=== PATIENT | male | born 1980 | race American Indian/Alaskan Native ===

== ENCOUNTER 2018-10-16 15:15 | Emergency (ER) | payer SELFPAY ==
[2018-10-16] MEDS ORDERED: NACL 0.9% 500 ML 500 ML IV ONE (16:33)
[2018-10-16] MEDS ORDERED: NACL 0.9% 1000 ML 1,000 ML IV ONE (16:35)
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
[2018-10-16] MEDS ORDERED: MERREM 1,000 MG in NACL 0.9% 100 ML IV ONE (16:41)
[2018-10-16 16:58] LABS: Basophils # (Auto) 0.1 K/mm3 (0.0-0.1); Basophils % (Auto) 1.1 % (0.0-1.8); Eosinophils # (Auto) 0.6 K/mm3 (0.0-0.4); Eosinophils % (Auto) 9.4 % (0.0-4.3); Hematocrit 35.7 % (35.5-45.6); Hemoglobin 11.7 gm/dl (11.8-15.2); Lymphocytes # (Auto) 2.3 K/mm3 (1.2-5.4); Lymphocytes % (Auto) 35.5 % (13.4-35.0); Mean Corpuscular HGB Conc 33 % (32-34); Mean Corpuscular Volume 79 fl (84-94); Monocytes # (Auto) 0.5 K/mm3 (0.0-0.8); Monocytes % (Auto) 8.3 % (0.0-7.3); Platelet Count 295 K/mm3 (140-440); Red Blood Count 4.49 M/mm3 (3.65-5.03); Red Cell Distribution Width 17.5 % (13.2-15.2)
[2018-10-16 17:14] LABS: INR 1.02 (0.87-1.13)
[2018-10-16 17:16] LABS: BUN/Creatinine Ratio 23; Blood Urea Nitrogen 14 mg/dL (9-20); Calcium 9.5 mg/dL (8.4-10.2); Hemolysis Index 3
--- NOTE | 2018-10-16 17:18 | XRay Report ---
CHEST 1 VIEW INDICATION / CLINICAL INFORMATION: possible Sepsis. COMPARISON: None available. FINDINGS: SUPPORT DEVICES: None. HEART / MEDIASTINUM: No significant abnormality. LUNGS / PLEURA: No significant pulmonary or pleural abnormality. No pneumothorax. ADDITIONAL FINDINGS: No significant additional findings. IMPRESSION: 1. No acute findings. Signer Name: Darian Brannon MD Signed: 10/16/2018 5:14 PM Workstation Name: [id number]
[2018-10-16 17:34] LABS: Alanine Aminotransferase 21 units/L (7-56); Albumin 3.6 g/dL (3.9-5); Creatine Kinase MB 4.7 ng/mL (0.0-4.0)
[2018-10-16 17:36] LABS: Bilirubin,Direct < 0.2 mg/dL (0-0.2)
[2018-10-16 18:58] LABS: Amorphous Crystals,Urine 2+; Bilirubin,Urine NEG (Negative); Blood,Urine NEG (Negative); Color,Urine Yellow (Yellow); Mucus,Urine FEW /HPF; Protein,Urine <15 mg/dL mg/dL (Negative); Urobilinogen,Urine < 2.0 mg/dL (<2.0)
[2018-10-16 19:00] LABS: WBC,Urine < 1.0 /HPF (0.0-6.0)
[2018-10-16 21:45] VITALS: BP 111/55
== END 2018-10-16 22:10 | disposition home or self-care (01) ==
LOC: ED 15:15
DX: G82.20 Paraplegia, unspecified (principal); F17.200 Nicotine dependence, unspecified, uncomplicated; F12.10 Cannabis abuse, uncomplicated; Z21 Asymptomatic human immunodeficiency virus [HIV] infection status
CPT/HCPCS: 36415; 71045; 80048; 80076; 81001; 82140; 82550; 82553; 82805; 83735; 83880; 85025; 85610; 87040; 87086; 96365; 99285; J2185; J7030

== ENCOUNTER 2021-09-21 08:52 | Inpatient (IN) | payer MEDICAID ==
[2021-09-21] MEDS ORDERED: SODIUM CHLORIDE 0.9% 1000 ML 1,000 ML ONE ×2 (09:02→15:38)
[2021-09-21] MEDS ORDERED: SODIUM CHLORIDE 0.9% 1000 ML IV SOLN IV ONE (09:57)
[2021-09-21] MEDS ORDERED: ACETAMINOPHEN 325 MG TAB PO PRN ×3 (09:57→15:11)
[2021-09-21] MEDS ORDERED: fentaNYL 100 MCG/2 ML INJ IV ONE (10:15)
--- NOTE | 2021-09-21 10:42 | XRay Report ---
XR chest 1V ap INDICATION / CLINICAL INFORMATION: fever. COMPARISON: 01/08/2019 FINDINGS: SUPPORT DEVICES: None. HEART /PULMONARY VASCULATURE: No significant abnormality. LUNGS / PLEURA: No significant pulmonary or pleural abnormality. No pneumothorax. ADDITIONAL FINDINGS: Metallic radiodensities project over the right lung base. Posterior thoracolumba r construct is intact. IMPRESSION: 1. No acute findings. Signer Name: Jorge L Rainey MD Signed: 09/21/2021 10:38 AM Workstation Name: [id number]
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
[2021-09-21] MEDS ORDERED: KETOROLAC 30 MG/1 ML INJ IV ONE (10:57)
[2021-09-21] MEDS ORDERED: CEFEPIME/NS 2 GM/100 ML 2 GM/100 ML BAG IV ONE (10:58)
[2021-09-21 11:05] LABS: Hematocrit 31.9 % (35.5-45.6); Hemoglobin 9.9 gm/dl (11.8-15.2); Mean Corpuscular HGB Conc 31 % (32-34); Mean Corpuscular Volume 74 fl (84-94); Platelet Count 332 K/mm3 (140-440); Red Blood Count 4.34 M/mm3 (3.65-5.03); Red Cell Distribution Width 17.6 % (13.2-15.2)
[2021-09-21 11:12] LABS: Partial Thromboplastin Time 34.3 Sec. (24.2-36.6)
[2021-09-21 11:18] LABS: Alanine Aminotransferase 21 units/L (7-56); Albumin 2.7 g/dL (3.9-5); Blood Urea Nitrogen 14 mg/dL (9-20); Calcium 8.6 mg/dL (8.4-10.2); Hemolysis Index 0
[2021-09-21 11:39] LABS: BUN/Creatinine Ratio 23
[2021-09-21 11:44] LABS: Total Cells Counted 100
[2021-09-21 11:47] LABS: Anisocytosis 2+; Hypochromasia 1+; Large Platelets Rare; Ovalocytes Rare; Platelet Estimate Consistent w Auto; Poikilocytosis Few
[2021-09-21 12:13] LABS: Chol/HDL Ratio 2.91 %; HDL Cholesterol 35 mg/dL (40-59); LDL Cholesterol,Direct 54 mg/dL (50-130)
--- NOTE | 2021-09-21 14:01 | Vascular Lab Report ---
DUPLEX DOPPLER LOWER EXTREMITY VEINS, BILATERAL INDICATION / CLINICAL INFORMATION: Bilateral lower extremity edema and pain. TECHNIQUE: Duplex doppler imaging was performed through the veins of both lower extremities using kelley ous compression and other maneuvers. COMPARISON: None available. FINDINGS: The study is limited by limited patient positioning due to the patient's paraplegia. RIGHT COMMON FEMORAL VEIN: Negative. RIGHT FEMORAL VEIN: Negative. RIGHT POPLITEAL VEIN: Negative. RIGHT CALF VEINS: Negative. LEFT COMMON FEMORAL VEIN: Negative. LEFT FEMORAL VEIN: Negative. LEFT POPLITEAL VEIN: Negative. LEFT CALF VEINS: Negative. ADDITIONAL FINDINGS: None. IMPRESSION: 1. No sonographic evidence for DVT in either lower extremity. Signer Name: Alonso Brand MD Signed: 09/21/2021 1:56 PM Workstation Name: [email or web address]
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
[2021-09-21] MEDS ORDERED: ALBUTEROL 2.5 MG/3 ML NEBU IH PRN (15:11)
[2021-09-21] MEDS ORDERED: ONDANSETRON 4 MG/2 ML INJ IV PRN (15:11)
[2021-09-21] MEDS: CLINDAMYCIN 600 MG/50 mL 600 MG/50 ML BAG IV SCH ×2 (15:40→23:28)
[2021-09-21 15:49] LABS: Amorphous Crystals,Urine 1+; Mucus,Urine 2+ /HPF
[2021-09-21 16:08] LABS: RBC,Urine > 182.0 /HPF (0.0-6.0)
[2021-09-21 16:09] LABS: Bilirubin,Urine Negative (Negative); Blood,Urine Large (Negative); Color,Urine Straw (Yellow); WBC,Urine > 182.0 /HPF (0.0-6.0)
--- NOTE | 2021-09-21 18:46 | Cat Scan Report ---
CT CHEST WITHOUT CONTRAST INDICATION / CLINICAL INFORMATION: dypsnea. TECHNIQUE: Axial CT images were obtained through the chest without contrast. [facility] using CT dose reduction for ALARA by means of automated exposure control. COMPARISON: None available. FINDINGS: HEART: No significant abnormality. CORONARY ARTERY CALCIFICATION: None. THORACIC AORTA: No significant abnormality. MEDIASTINUM / SANTO: No significant abnormality. PLEURA: No pleural effusion. No pneumothorax. LUNGS: Mild scarring left base. No acute infiltrate. ADDITIONAL FINDINGS: Small hiatal hernia. UPPER ABDOMEN: No significant abnormality. SKELETAL SYSTEM: Previous posterior fusion lower thoracic spine. IMPRESSION: No acute abnormality. Signer Name: Joseph Esteban MD Signed: 09/21/2021 6:41 PM Workstation Name: [id number]
[2021-09-21] MEDS: HEPARIN 5,000 UNIT/1 ML VIAL SUB-Q SCH (21:51)
[2021-09-21] MEDS: oxyCODONE /ACETAMINOPHEN 5-325MG TAB PO PRN (21:51)
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
[2021-09-22] MEDS: CLINDAMYCIN 600 MG/50 mL 600 MG/50 ML BAG IV SCH ×2 (09:59→17:25)
[2021-09-22] MEDS: HEPARIN 5,000 UNIT/1 ML VIAL SUB-Q SCH ×2 (10:10→21:15)
[2021-09-22] MEDS: oxyCODONE /ACETAMINOPHEN 5-325MG TAB PO PRN ×2 (15:14→21:28)
[2021-09-23] MEDS: CLINDAMYCIN 600 MG/50 mL 600 MG/50 ML BAG IV SCH ×3 (00:50→16:00)
[2021-09-23] MEDS: HEPARIN 5,000 UNIT/1 ML VIAL SUB-Q SCH ×2 (09:36→21:14)
[2021-09-23] MEDS: oxyCODONE /ACETAMINOPHEN 5-325MG TAB PO PRN (14:02)
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
[2021-09-24] MEDS: CLINDAMYCIN 600 MG/50 mL 600 MG/50 ML BAG IV SCH ×4 (00:09→23:16)
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
[2021-09-24] MEDS: HEPARIN 5,000 UNIT/1 ML VIAL SUB-Q SCH ×2 (11:46→21:49)
[2021-09-24] MEDS: oxyCODONE /ACETAMINOPHEN 5-325MG TAB PO PRN (21:48)
[2021-09-25 04:54] LABS: Basophils # (Auto) 0.1 K/mm3 (0.0-0.1); Basophils % (Auto) 0.8 % (0.0-1.8); Eosinophils # (Auto) 0.3 K/mm3 (0.0-0.4); Eosinophils % (Auto) 4.5 % (0.0-4.3); Hematocrit 28.1 % (35.5-45.6); Hemoglobin 8.8 gm/dl (11.8-15.2); Lymphocytes # (Auto) 2.1 K/mm3 (1.2-5.4); Lymphocytes % (Auto) 27.2 % (13.4-35.0); Mean Corpuscular HGB Conc 31 % (32-34); Mean Corpuscular Volume 74 fl (84-94); Monocytes # (Auto) 0.6 K/mm3 (0.0-0.8); Monocytes % (Auto) 8.4 % (0.0-7.3); Platelet Count 337 K/mm3 (140-440); Red Blood Count 3.81 M/mm3 (3.65-5.03)
[2021-09-25 05:14] LABS: Alanine Aminotransferase 20 units/L (7-56); Albumin 2.4 g/dL (3.9-5); Blood Urea Nitrogen 15 mg/dL (9-20); Calcium 8.3 mg/dL (8.4-10.2); Hemolysis Index 0
[2021-09-25 05:22] LABS: BUN/Creatinine Ratio 30
[2021-09-25] MEDS: HEPARIN 5,000 UNIT/1 ML VIAL SUB-Q SCH ×2 (10:29→22:46)
[2021-09-25] MEDS: CLINDAMYCIN 600 MG/50 mL 600 MG/50 ML BAG IV SCH ×2 (10:30→15:01)
[2021-09-26] MEDS: CLINDAMYCIN 600 MG/50 mL 600 MG/50 ML BAG IV SCH ×2 (00:59→10:15)
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
[2021-09-26] MEDS: HEPARIN 5,000 UNIT/1 ML VIAL SUB-Q SCH ×2 (10:15→22:19)
[2021-09-26] MEDS: PIPERACIL/TAZOBACTA 4.5/NS 100 4.5 GM/100 ML VIAL IV SCH ×2 (11:21→18:04)
[2021-09-26] MEDS: oxyCODONE /ACETAMINOPHEN 5-325MG TAB PO PRN (18:09)
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
--- NOTE | 2021-09-26 18:54 | Consultation ---
History of Present Illness - Reason for Consult Consult date: 09/26/21 - History of Present Illness 40-year-old man who is a resident of a fpc with a past medical history of seizures, HIV, paraplegia, debility with chronic sacral decubitus ulcer presented to the hospital due to altered mental status. Staff at his fpc was noted to have increased confusion, day of admission. He was found to be hypotensive on admission, with concern for infection of his sacral decubitus. Afebrile, normal white count. Normal renal function. Significant pyuria. Wound cultures with Proteus, group C strep. Urine culture from suprapubic with Pseudomonas, Enterococcus Imaging personally reviewed: Chest CT: No pneumonia Past History Past Medical History: HIV/AIDS, seizures Past Surgical History: Other (Spine surgery) Social history: single. denies: smoking, alcohol abuse, prescription drug abuse Family history: no significant family history, other (Reviewed) Medications and Allergies Allergies Allergy/AdvReac Type Severity Reaction Status Date / Time vancomycin Allergy Rash Verified 09/23/21 10:21 contrast Allergy Unknown Hives Uncoded 09/23/21 10:21 Home Medications Medication Instructions Recorded Confirmed Last Taken Type Ascorbic Acid [Vitamin C] 500 mg PO QPM 09/22/21 09/22/21 Unknown History Diclofenac 1% [Diclofenac 1% 100 gm TP QID 09/22/21 09/22/21 Unknown History topical gel] Dolutegravir [Tivicay] 50 mg PO QDAY 09/22/21 09/22/21 Unknown History Duloxetine HCl [Cymbalta] 60 mg PO QDAY 09/22/21 09/22/21 Unknown History Emtricitabine/Tenofov Alafenam 1 each PO QDAY 09/22/21 09/22/21 Unknown History [Descovy 200-25 mg Tablet] Folic Acid 1 mg PO QDAY 09/22/21 09/22/21 Unknown History Gabapentin [Neurontin] 300 mg PO BID 09/22/21 09/22/21 Unknown History Lactobacillus Acidophilus 0.5 mg PO QDAY 09/22/21 09/22/21 Unknown History [Acidophilus Probiotic] Oxybutynin [Ditropan] 5 mg PO Q8HR PRN 09/22/21 09/22/21 Unknown History Oxycodone HCl/Acetaminophen 1 each PO Q6H PRN 09/22/21 09/22/21 Unknown History [Endocet 5-325 mg Tablet] Sennosides 8.6 mg PO QPM PRN 09/22/21 09/22/21 Unknown History Zinc Sulfate 220 mg PO QPM 09/22/21 09/22/21 Unknown History Active Meds: Active Medications Acetaminophen (Acetaminophen 325 Mg Tab) 650 mg PO Q4H PRN PRN Reason: Pain MILD(1-3)/Fever >100.5/SINGH Albuterol (Albuterol 2.5 Mg/3 Ml Nebu) 2.5 mg IH Q4HRT PRN PRN Reason: Shortness Of Breath Heparin Sodium (Porcine) (Heparin 5,000 Unit/1 Ml Vial) 5,000 unit SUB-Q Q12HR TIMOTEO Last Admin: 09/26/21 10:15 Dose: 5,000 unit Hydromorphone HCl (Hydromorphone 0.5 Mg/0.5 Ml Inj) 0.5 mg IV Q13H PRN PRN Reason: Pain , Severe (7-10) Cefepime HCl (Cefepime/Ns 2 Gm/100 Ml) 2 gm in 100 mls @ 200 mls/hr IV Q8H TIMOTEO; Protocol Ondansetron HCl (Ondansetron 4 Mg/2 Ml Inj) 4 mg IV Q8H PRN PRN Reason: Nausea And Vomiting Oxycodone/Acetaminophen (Oxycodone /Acetaminophen 5-325mg Tab) 1 tab PO Q6H PRN PRN Reason: Pain, Moderate (4-6) Last Admin: 09/26/21 18:09 Dose: 1 tab Sodium Chloride (Sodium Chloride 0.9% 10 Ml Flush Syringe) 10 ml IV BID TIMOTEO Last Admin: 09/26/21 10:16 Dose: 10 ml Sodium Chloride (Sodium Chloride 0.9% 10 Ml Flush Syringe) 10 ml IV PRN PRN PRN Reason: LINE FLUSH Review of Systems ROS unobtainable: due to mental status Physical Examination - Physical Exam Narrative exam: Physical Exam: Constitutional: Awake, nonresponsive Head, Ears, Nose: Normocephalic, atraumatic. External ears, nose normal Eyes: Conjunctivae/corneas clear. No icterus. No ptosis. Neck: Supple, no meningeal signs Oral: dentition fair, no thrush Cardiovascular: S1, S2 normal. Respiratory: Good air entry, clear to auscultation bilaterally GI: Soft, non-tender; bowel sounds normal. No peritoneal signs. Musculoskeletal: No pedal edema, no cyanosis. Skin: No rash or abscess Hem/Lymphatic: No palpable cervical or supraclavicular nodes. No lymphangitis Psych: Unable to assess Neurological: Nonverbal - Constitutional Vitals: Vital Signs Temp Pulse Resp BP Pulse Ox 98.4 F 77 16 118/69 100 09/26/21 18:05 09/26/21 18:05 09/26/21 18:05 09/26/21 18:05 09/26/21 18:05 Temperature -Last 24 Hours Temperature 98.4 F Temperature 98.3 F Temperature 99.0 F Results - Labs CBC & Chem 7: 09/25/21 04:21 09/25/21 04:21 Assessment and Plan Cultures: Blood culture no growth Urine culture 2x isolates of Pseudomonas, Enterococcus Wound culture group C strep, Proteus A/P:40-year-old man who is a resident of a fpc with a past medical history of seizures, HIV, paraplegia, debility with chronic sacral decubitus ulcer #Infected sacral decub: Polymicrobial cultures. Poor prognosis of the wound given bedbound status #Pyuria: Given multiple morphotypes of Pseudomonas I presume this is from the old suprapubic catheter. Recommend exchange of the suprapubic, collection new cultures #Bedbound status: Offloading and wound care #HIV: Patient unable to provide history of any ART Recs: -Check CD4 and viral load -Stop vancomycin, cefepime -Started Zosyn -Exchange suprapubic catheter Thank you for the consult, we will continue to follow. Stephen Avendano MD [facility] O: [phone] F: [phone]
[2021-09-26] MEDS ORDERED: CEFEPIME/NS 2 GM/100 ML 2 GM/100 ML BAG IV SCH (20:00)
[2021-09-27] MEDS: PIPERACILLIN/TAZOBACTAM 3.375 3.375 GM/50 ML BAG IV SCH ×3 (01:31→17:02)
[2021-09-27] MEDS: oxyCODONE /ACETAMINOPHEN 5-325MG TAB PO PRN ×2 (01:34→22:22)
[2021-09-27] MEDS: HEPARIN 5,000 UNIT/1 ML VIAL SUB-Q SCH ×2 (10:23→22:20)
[2021-09-27] MEDS: HYDROmorphone 0.5 MG/0.5 ML INJ IV PRN (14:42)
--- NOTE | 2021-09-27 16:58 | Progress Note ---
Assessment and Plan Cultures: Blood culture no growth Urine culture 2x isolates of Pseudomonas, Enterococcus Wound culture group C strep, Proteus A/P:40-year-old man who is a resident of a half-way with a past medical history of seizures, HIV, paraplegia, debility with chronic sacral decubitus ulcer #Infected sacral decub: Polymicrobial cultures. Poor prognosis of the wound given bedbound status #Pyuria: Given multiple morphotypes of Pseudomonas I presume this is from the old suprapubic catheter. Recommend exchange of the suprapubic, collection new cultures #Bedbound status: Offloading and wound care #HIV: Patient unable to provide history of any ART Recs: -Check CD4 and viral load -Started Zosyn -Exchange suprapubic catheter -If improved would plan to DC on Augmentin 875/125 mg every 12 hours and Levaquin 750 mg every 24 hours for 10 days Thank you for the consult, we will continue to follow. Stephen Avendano MD [facility] O: [phone] F: [phone] Subjective Date of service: 09/27/21 Principal diagnosis: Sepsis, sacral decubitus ulcers, paraplegia Interval history: Afebrile, normal white count. No change. Objective - Exam Narrative Exam: Physical Exam: Constitutional: Awake, nonresponsive Head, Ears, Nose: Normocephalic, atraumatic. External ears, nose normal Eyes: Conjunctivae/corneas clear. No icterus. No ptosis. Neck: Supple, no meningeal signs Oral: dentition fair, no thrush Cardiovascular: S1, S2 normal. Respiratory: Good air entry, clear to auscultation bilaterally GI: Soft, non-tender; bowel sounds normal. No peritoneal signs. Musculoskeletal: No pedal edema, no cyanosis. Skin: No rash or abscess Hem/Lymphatic: No palpable cervical or supraclavicular nodes. No lymphangitis Psych: Unable to assess Neurological: Nonverbal - Constitutional Vitals: Vital Signs Temp Pulse Resp BP Pulse Ox 98.1 F 76 20 103/53 98 09/27/21 12:01 09/27/21 12:01 09/27/21 12:01 09/27/21 12:09/27/21 16:00 Temperature -Last 24 Hours Temperature 98.1 F Temperature 98.4 F - Labs CBC & Chem 7: 09/25/21 04:21 09/25/21 04:21
[2021-09-28] MEDS: PIPERACILLIN/TAZOBACTAM 3.375 3.375 GM/50 ML BAG IV SCH ×2 (01:42→09:50)
[2021-09-28] MEDS: HYDROmorphone 0.5 MG/0.5 ML INJ IV PRN (09:52)
[2021-09-28] MEDS: HEPARIN 5,000 UNIT/1 ML VIAL SUB-Q SCH ×2 (09:54→21:58)
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
[2021-09-28] MEDS: oxyCODONE /ACETAMINOPHEN 5-325MG TAB PO PRN ×2 (14:57→17:52)
--- NOTE | 2021-09-28 16:48 | Progress Note ---
Assessment and Plan Cultures: Blood culture no growth Urine culture 2x isolates of Pseudomonas, Enterococcus Wound culture group C strep, Proteus A/P:40-year-old man who is a resident of a half-way with a past medical history of seizures, HIV, paraplegia, debility with chronic sacral decubitus ulcer #Infected sacral decub: Polymicrobial cultures. Poor prognosis of the wound given bedbound status #Pyuria: Given multiple morphotypes of Pseudomonas I presume this is from the old suprapubic catheter. Recommend exchange of the suprapubic, collection new cultures #Bedbound status: Offloading and wound care #HIV: Patient unable to provide history of any ART Recs: -Check CD4 and viral load -Started Zosyn -Suprapubic exchanged today. -If improved would plan to DC on Augmentin 875/125 mg every 12 hours and Levaquin 750 mg every 24 hours for 10 days Thank you for the consult, we will continue to follow. Stephen Avendano MD [facility] ([facility] O: [phone] F: [phone] Subjective Date of service: 09/28/21 Principal diagnosis: Sepsis, sacral decubitus ulcers, paraplegia Interval history: Afebrile, normal white count. Suprapubic catheter changed today Objective - Exam Narrative Exam: Physical Exam: Constitutional: Awake, nonresponsive Head, Ears, Nose: Normocephalic, atraumatic. External ears, nose normal Eyes: Conjunctivae/corneas clear. No icterus. No ptosis. Neck: Supple, no meningeal signs Oral: dentition fair, no thrush Cardiovascular: S1, S2 normal. Respiratory: Good air entry, clear to auscultation bilaterally GI: Soft, non-tender; bowel sounds normal. No peritoneal signs. Musculoskeletal: No pedal edema, no cyanosis. Skin: No rash or abscess Hem/Lymphatic: No palpable cervical or supraclavicular nodes. No lymphangitis Psych: Unable to assess Neurological: Nonverbal - Constitutional Vitals: Vital Signs Temp Pulse Resp BP Pulse Ox 98.3 F 85 16 116/69 99 09/27/21 21:09 09/27/21 21:09 09/27/21 21:09 09/27/21 21:09 09/28/21 04:00 Temperature -Last 24 Hours Temperature 98.3 F - Labs CBC & Chem 7: 09/25/21 04:21 09/25/21 04:21
[2021-09-28] MEDS: PIPERACIL/TAZOBACTA 4.5/NS 100 4.5 GM/100 ML VIAL IV SCH (17:52)
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
[2021-09-29] MEDS: PIPERACIL/TAZOBACTA 4.5/NS 100 4.5 GM/100 ML VIAL IV SCH ×3 (01:35→20:27)
[2021-09-29] MEDS: oxyCODONE /ACETAMINOPHEN 5-325MG TAB PO PRN ×2 (11:26→20:15)
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
[2021-09-29] MEDS: HEPARIN 5,000 UNIT/1 ML VIAL SUB-Q SCH ×2 (11:28→22:29)
--- NOTE | 2021-09-29 11:59 | Progress Note ---
Assessment and Plan spt changed again ct if stops draoinng no pain Subjective Date of service: 09/29/21 Principal diagnosis: Sepsis, sacral decubitus ulcers, paraplegia Objective - Constitutional Vitals: Vital Signs - 12hr 09/29/21 09/29/21 00:08 04:34 Temperature 98.2 F Pulse Rate 71 Respiratory 18 18 Rate Blood Pressure 104/62 O2 Sat by Pulse 97 99 Oximetry - Labs CBC & Chem 7: 09/25/21 04:21 09/25/21 04:21 Medications & Allergies - Medications Allergies/Adverse Reactions: Allergies vancomycin Allergy (Verified 09/23/21 10:21) Rash contrast Allergy (Unknown, Uncoded 09/23/21 10:21) Hives Home Medications: Home Medications Medication Instructions Recorded Confirmed Last Taken Type Ascorbic Acid [Vitamin C] 500 mg PO QPM 09/22/21 09/22/21 Unknown History Diclofenac 1% [Diclofenac 1% 100 gm TP QID 09/22/21 09/22/21 Unknown History topical gel] Dolutegravir [Tivicay] 50 mg PO QDAY 09/22/21 09/22/21 Unknown History Duloxetine HCl [Cymbalta] 60 mg PO QDAY 09/22/21 09/22/21 Unknown History Emtricitabine/Tenofov Alafenam 1 each PO QDAY 09/22/21 09/22/21 Unknown History [Descovy 200-25 mg Tablet] Folic Acid 1 mg PO QDAY 09/22/21 09/22/21 Unknown History Gabapentin 300 mg PO BID 09/22/21 09/22/21 Unknown History Lactobacillus Acidophilus 0.5 mg PO QDAY 09/22/21 09/22/21 Unknown History [Acidophilus Probiotic] Oxybutynin [Ditropan] 5 mg PO Q8HR PRN 09/22/21 09/22/21 Unknown History Sennosides 8.6 mg PO QPM PRN 09/22/21 09/22/21 Unknown History Zinc Sulfate 220 mg PO QPM 09/22/21 09/22/21 Unknown History Amoxicillin/K Clav Tab [Augmentin 1 tab PO Q12HR #20 tab 09/29/21 Unknown Rx 875 mg] levoFLOXacin [Levaquin] 750 mg PO QDAY #10 tablet 09/29/21 Unknown Rx oxyCODONE /ACETAMINOPHEN [Percocet 1 tab PO Q8H PRN #21 09/29/21 Unknown Rx 5/325] Active Medications: Generic Name Dose Route Start Last Admin Trade Name Loyd PRN Reason Stop Dose Admin Acetaminophen 650 mg 09/21/21 15:11 09/28/21 21:59 Acetaminophen 325 Mg Tab PO 650 mg Q4H PRN Administration Pain MILD(1-3)/Fever >100.5/SINGH Albuterol 2.5 mg 09/21/21 15:11 Albuterol 2.5 Mg/3 Ml Nebu IH Q4HRT PRN Shortness Of Breath Heparin Sodium (Porcine) 5,000 unit 09/21/21 22:00 09/29/21 11:28 Heparin 5,000 Unit/1 Ml Vial SUB-Q 5,000 unit Q12HR TIMOTEO Administration Piperacillin Sod/Tazobactam Sod 4.5 gm in 100 mls @ 200 mls/hr 09/28/21 18:00 09/29/21 11:27 Zosyn/Ns 4.5gm/100ml IV 200 mls/hr Q8H TIMOTEO Administration Ondansetron HCl 4 mg 09/21/21 15:11 Ondansetron 4 Mg/2 Ml Inj IV Q8H PRN Nausea And Vomiting Oxycodone/Acetaminophen 2 tab 09/28/21 15:10 09/29/21 11:26 Oxycodone /Acetaminophen 5-325mg Tab PO 2 tab Q6H PRN Administration Pain, Moderate (4-6) Sodium Chloride 10 ml 09/21/21 22:00 09/29/21 11:28 Sodium Chloride 0.9% 10 Ml Flush Syringe IV 10 ml BID TIMOTEO Administration Sodium Chloride 10 ml 09/21/21 15:11 Sodium Chloride 0.9% 10 Ml Flush Syringe IV PRN PRN LINE FLUSH HEART Score - HEART Score Troponin: Troponin T 0.148 ng/mL (0.00-0.029) H* 09/21/21 10:15
[2021-09-29] MEDS ORDERED: SODIUM CHLORIDE 0.9% 250ML 250 ML ONE (12:20)
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
[2021-09-30] MEDS: PIPERACIL/TAZOBACTA 4.5/NS 100 4.5 GM/100 ML VIAL IV SCH ×2 (02:12→10:20)
[2021-09-30 06:53] LABS: Basophils # (Auto) 0.2 K/mm3 (0.0-0.1); Basophils % (Auto) 2.3 % (0.0-1.8); Eosinophils # (Auto) 0.9 K/mm3 (0.0-0.4); Eosinophils % (Auto) 9.4 % (0.0-4.3); Hemoglobin 9.4 gm/dl (11.8-15.2); Lymphocytes # (Auto) 2.6 K/mm3 (1.2-5.4); Lymphocytes % (Auto) 28.8 % (13.4-35.0); Mean Corpuscular HGB Conc 32 % (32-34); Mean Corpuscular Volume 73 fl (84-94); Monocytes # (Auto) 0.8 K/mm3 (0.0-0.8); Monocytes % (Auto) 8.4 % (0.0-7.3); Platelet Count 371 K/mm3 (140-440); Red Blood Count 3.98 M/mm3 (3.65-5.03); Red Cell Distribution Width 19.5 % (13.2-15.2)
[2021-09-30 07:09] LABS: BUN/Creatinine Ratio 18; Blood Urea Nitrogen 18 mg/dL (9-20); Calcium 8.6 mg/dL (8.4-10.2); Hemolysis Index 2
[2021-09-30] MEDS: HEPARIN 5,000 UNIT/1 ML VIAL SUB-Q SCH (10:22)
[2021-09-30] MEDS: oxyCODONE /ACETAMINOPHEN 5-325MG TAB PO PRN ×2 (10:36→15:56)
[2021-09-30 12:53] VITALS: BP 107/60
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
--- NOTE | 2021-09-30 16:43 | Progress Note ---
Assessment and Plan Cultures: Blood culture no growth Urine culture 2x isolates of Pseudomonas, Enterococcus Wound culture group C strep, Proteus A/P:40-year-old man who is a resident of a retirement with a past medical history of seizures, HIV, paraplegia, debility with chronic sacral decubitus ulcer #Infected sacral decub: Polymicrobial cultures. Poor prognosis of the wound given bedbound status #Pyuria: Given multiple morphotypes of Pseudomonas I presume this is from the old suprapubic catheter. Recommend exchange of the suprapubic, collection new cultures #Bedbound status: Offloading and wound care #HIV: Patient unable to provide history of any ART Recs: -Check CD4 and viral load -Started Zosyn -Suprapubic exchanged today. -If improved would plan to DC on Augmentin 875/125 mg every 12 hours and Levaquin 750 mg every 24 hours for 10 days Thank you for the consult, we will continue to follow. Stephen Avendano MD [facility] ([facility] O: [phone] F: [phone] Subjective Date of service: 09/30/21 Principal diagnosis: Sepsis, sacral decubitus ulcers, paraplegia Interval history: Afebrile, normal white count. Objective - Exam Narrative Exam: Physical Exam: Constitutional: Awake, nonresponsive Head, Ears, Nose: Normocephalic, atraumatic. External ears, nose normal Eyes: Conjunctivae/corneas clear. No icterus. No ptosis. Neck: Supple, no meningeal signs Oral: dentition fair, no thrush Cardiovascular: S1, S2 normal. Respiratory: Good air entry, clear to auscultation bilaterally GI: Soft, non-tender; bowel sounds normal. No peritoneal signs. Musculoskeletal: No pedal edema, no cyanosis. Skin: No rash or abscess Hem/Lymphatic: No palpable cervical or supraclavicular nodes. No lymphangitis Psych: Unable to assess Neurological: Nonverbal - Constitutional Vitals: Vital Signs Temp Pulse Resp BP Pulse Ox 98.1 F 84 16 107/60 100 09/30/21 11:32 09/30/21 11:32 09/30/21 11:32 09/30/21 11:32 09/30/21 11:32 Temperature -Last 24 Hours Temperature 98.1 F Temperature 98.0 F Temperature 98.0 F - Labs CBC & Chem 7: 09/30/21 06:36 09/30/21 06:36 Labs: Abnormal lab results 09/30/21 Range/Units 06:36 Hgb 9.4 L (11.8-15.2) gm/dl Hct 29.0 L (35.5-45.6) % MCV 73 L (84-94) fl MCH 24 L (28-32) pg RDW 19.5 H (13.2-15.2) % [place] % (Auto) 8.4 H (0.0-7.3) % Eos % (Auto) 9.4 H (0.0-4.3) % Baso % (Auto) 2.3 H (0.0-1.8) % Eos # (Auto) 0.9 H (0.0-0.4) K/mm3 Baso # (Auto) 0.2 H (0.0-0.1) K/mm3
== END 2021-09-30 14:10 | disposition home health service (06) | DRG 974 ==
LOC: ED 08:52 → 3A 15:11
PROVIDERS: ADMIT Internal Medicine; ATTEND Internal Medicine
DX: A41.89 Other specified sepsis (principal); E43 Unspecified severe protein-calorie malnutrition; B20 Human immunodeficiency virus [HIV] disease; G92.8 Other toxic encephalopathy; T83.510A Infection and inflammatory reaction due to cystostomy catheter, initial encounter; G82.20 Paraplegia, unspecified; Z68.1 Body mass index [BMI] 19.9 or less, adult; G40.909 Epilepsy, unspecified, not intractable, without status epilepticus; L03.317 Cellulitis of buttock; L89.159 Pressure ulcer of sacral region, unspecified stage; Z74.01 Bed confinement status; Z91.041 Radiographic dye allergy status; Z88.8 Allergy status to other drugs, medicaments and biological substances; E88.09 Other disorders of plasma-protein metabolism, not elsewhere classified; E87.2 Acidosis; N39.0 Urinary tract infection, site not specified
CPT/HCPCS: 36415; 71045; 71250; 80048; 80053; 80061; 81001; 82140; 82550; 84484; 85007; 85025; 85027; 85379; 85384; 85730; 86850; 86900; 86901; 87040; 87076; 87086; 87116; 87186; 93970; 94640; G0378; J7502; J0692; J1170; J1644; J1885; J2543; J3010; J7030; J7050

== ENCOUNTER 2021-09-30 17:44 | Emergency (ER) | payer MEDICAID ==
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
[2021-10-01] MEDS ORDERED: fentaNYL 100 MCG/2 ML INJ IM ONE
[2021-10-01] MEDS ORDERED: MORPHINE 2 MG/1 ML INJ IM ONE (04:31)
[2021-10-01] MEDS ORDERED: HYDROcodone/ACETAMINOPHEN 5-325 MG TAB PO ONE (11:12)
[2021-10-01] MEDS ORDERED: SENNOSIDES 8.6 MG TAB PO PRN (13:28)
[2021-10-01] MEDS ORDERED: OXYBUTYNIN 5 MG TAB PO PRN (13:28)
[2021-10-01] MEDS ORDERED: NON-FORMULARY EACH (Duloxetine Hcl [Cymbalta] 60 MG Capsule.Dr) PO SCH (13:30)
[2021-10-01] MEDS ORDERED: NON-FORMULARY EACH (Emtricitabine/Tenofov Alafenam [Descovy 200-25 Mg Tablet] 1 EACH Table PO SCH (13:30)
[2021-10-01] MEDS ORDERED: LACTOBACILLUS ACIDOPHILUS 0.5 MG PO SCH (13:30)
--- NOTE | 2021-10-01 13:32 | Event Note ---
Date: 10/01/21 The patient is seen and examined. He is talking on his cell phone, and he is in no acute distress. He was discharged yesterday from this department. Discharged with instructions to continue Augmentin every 12 hours, and Levaquin once daily, for 10 days. The physician team also discharged with instructions to continue antiviral therapy. Thus far, the patient has not been seen by case management. 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 Patient does not appear to have an immediate medical contraindication at this time which would preclude discharge, especially as he was discharged yesterday. Have requested that nursing team get in touch with case management, to ascertain placement into a custodial/penitentiary/personal skilled nursing. As per recent case management documentation [facility] continuing to follow up with [facility] with Mr Woodard, . However, pt understands that if Mr Woodard or any other placement- unable to provide a room, he will return to his transitional home, pt agrees with this plan. [facility] will continue to follow. Vital Signs 09/30/21 10/01/21 10/01/21 17:44 00:20 03:00 Temperature 98.1 F Pulse Rate 84 83 Respiratory 18 18 Rate Blood Pressure 107/60 Blood Pressure 114/59 [Right] O2 Sat by Pulse 100 100 99 Oximetry 10/01/21 04:47 Temperature Pulse Rate 80 Respiratory 16 Rate Blood Pressure Blood Pressure 121/67 [Right] O2 Sat by Pulse 98 Oximetry Vital Signs 09/30/21 10/01/21 10/01/21 17:44 00:20 03:00 Temperature 98.1 F Pulse Rate 84 83 Respiratory 18 18 Rate Blood Pressure 107/60 Blood Pressure 114/59 [Right] O2 Sat by Pulse 100 100 99 Oximetry 10/01/21 04:47 Temperature Pulse Rate 80 Respiratory 16 Rate Blood Pressure Blood Pressure 121/67 [Right] O2 Sat by Pulse 98 Oximetry
[2021-10-01] MEDS ORDERED: FLORANEX GRANULE PACKET PO SCH (15:00)
[2021-10-01] MEDS: AMOXICILLIN/K CLAV 875/125MG TAB PO SCH ×2 (17:01→21:33)
[2021-10-01] MEDS: FOLIC ACID 1 MG TAB PO SCH (17:01)
[2021-10-01] MEDS: GABAPENTIN 300 MG CAP PO SCH ×2 (17:01→21:32)
[2021-10-01] MEDS: levoFLOXacin 750 MG TAB PO SCH (17:02)
[2021-10-01] MEDS: oxyCODONE /ACETAMINOPHEN 5-325MG TAB PO PRN (17:02)
[2021-10-01] MEDS: DULoxetine 30 MG CAP PO SCH (17:02)
[2021-10-01] MEDS: DOLUTEGRAVIR 50 MG TAB PO SCH (18:10)
[2021-10-01] MEDS: EMTRICITABINE 200 MG CAP PO SCH (18:10)
[2021-10-01] MEDS: ZINC SULFATE 220 MG CAP PO SCH (21:32)
[2021-10-02] MEDS: AMOXICILLIN/K CLAV 875/125MG TAB PO SCH ×2 (13:06→21:42)
[2021-10-02] MEDS: GABAPENTIN 300 MG CAP PO SCH ×2 (13:10→21:42)
[2021-10-02] MEDS: DULoxetine 30 MG CAP PO SCH (13:10)
[2021-10-02] MEDS: FOLIC ACID 1 MG TAB PO SCH (13:10)
[2021-10-02] MEDS ORDERED: TENOFOVIR 300 MG TAB PO SCH (15:00)
--- NOTE | 2021-10-02 16:11 | Event Note ---
Date: 10/02/21 Patient seen and examined. He is in no acute distress. He is currently on his cellular phone. Vital signs unremarkable. Nursing team reports no acute issues or concerns this morning Awaiting case management intervention for placement. Does not appear to have an emergent medical condition present at this time that would preclude discharge Vital Signs 09/30/21 10/01/21 10/01/21 17:44 00:20 03:00 Temperature 98.1 F Pulse Rate 84 83 Respiratory 18 18 Rate Blood Pressure 107/60 Blood Pressure 114/59 [Right] O2 Sat by Pulse 100 100 99 Oximetry 10/01/21 10/01/21 10/01/21 04:47 10:00 12:00 Temperature 98.0 F Pulse Rate 80 80 Respiratory 16 20 18 Rate Blood Pressure Blood Pressure 121/67 118/65 [Right] O2 Sat by Pulse 98 100 99 Oximetry 10/01/21 10/01/21 10/02/21 14:00 19:55 05:00 Temperature 98.1 F 98.1 F 98.2 F Pulse Rate 76 95 H 83 Respiratory 18 18 18 Rate Blood Pressure Blood Pressure 120/71 126/78 118/69 [Right] O2 Sat by Pulse 99 99 99 Oximetry
[2021-10-02] MEDS: ZINC SULFATE 220 MG CAP PO SCH (21:33)
[2021-10-03 11:23] VITALS: BP 118/63
[2021-10-03] MEDS: oxyCODONE /ACETAMINOPHEN 5-325MG TAB PO PRN (14:29)
[2021-10-03] MEDS: FOLIC ACID 1 MG TAB PO SCH (14:32)
[2021-10-03] MEDS: GABAPENTIN 300 MG CAP PO SCH (14:32)
[2021-10-03] MEDS: levoFLOXacin 750 MG TAB PO SCH (14:32)
[2021-10-03] MEDS: DOLUTEGRAVIR 50 MG TAB PO SCH (14:32)
[2021-10-03] MEDS: EMTRICITABINE 200 MG CAP PO SCH (14:34)
[2021-10-03] MEDS: DULoxetine 30 MG CAP PO SCH (14:34)
[2021-10-03] MEDS ORDERED: SODIUM CHLORIDE IRRI 500 ML 500 ML IR ONE (16:55)
== END 2021-10-03 19:08 | disposition still patient (30) ==
LOC: ED 17:44
DX: M79.606 Pain in leg, unspecified (principal)
CPT/HCPCS: 96372; 99284; J2270; J3010; J3490